=== PATIENT | female | born 2005 | race Caucasian/White ===

== ENCOUNTER 2024-02-28 21:24 | Emergency (ER) | payer SELFPAY ==
[~2024-02-28] VITALS: Ht 165.1 cm; Wt 83.5 kg
[~2024-02-28 21:24] MED LIST: AMOXIL250 MG/5 M PO; ATARAX25 MG PO; AUGMENTIN ES-6100 ML PO; CIPRODEX 0.3%-7.5 ML OT; CLARITIN5 MG/5 ML PO; LIDEX0.05% T; ORAPRED15 MG/5 ML PO; PIN-X720.5 MG PO; PRELONE5 MG/5 ML PO; ZOFRAN ODT4 MG SL; Zithromax200 MG/5 M PO
[2024-02-28] MEDS ORDERED: diphenhydrAMINE hydrochloride 50 MG/ML VIAL IV ONE (21:50)
[2024-02-28] MEDS ORDERED: SODIUM CHLORIDE 0.9% 500 ML IV ONE (21:50)
[2024-02-28] MEDS ORDERED: Metoclopramide Hydrochloride 10 MG/2 ML VIAL IV ONE (21:50)
[2024-02-28] MEDS ORDERED: Dexamethasone Sodium Phospha 20 MG/5 ML VIAL IV ONE (21:50)
[2024-02-28] MEDS ORDERED: Ketorolac Tromethamine 30 MG/ML VIAL IV ONE (21:50)
[2024-02-28] MEDS ORDERED: REGLAN10 M1 PO (23:08)
== END 2024-02-28 23:28 | disposition home or self-care (01) ==
LOC: ED 21:24
DX: R51.9 Headache, unspecified (principal); J45.909 Unspecified asthma, uncomplicated; Z98.890 Other specified postprocedural states